=== PATIENT | male | born 1950 | race Caucasian/White ===

== ENCOUNTER → 2016-11-03 | Outpatient (CLI) | payer OTHER | END | disposition home or self-care (01) | LOC: RAD 08:07 | PROVIDERS: ATTEND Internal Medicine Hematology & Oncology | DX: Z45.2 Encounter for adjustment and management of vascular access device (principal); C76.0 Malignant neoplasm of head, face and neck | CPT/HCPCS: 36569; 76937; 77001; C1751 ==

== ENCOUNTER → 2017-05-30 | Outpatient (CLI) | payer BC | LOC: RAD 08:17 | PROVIDERS: ATTEND Internal Medicine Hematology & Oncology | DX: Z45.2 Encounter for adjustment and management of vascular access device (principal); C44.40 Unspecified malignant neoplasm of skin of scalp and neck | CPT/HCPCS: 36569; 76937; 77001; C1751 ==